=== PATIENT | male | born 1940 | race Caucasian/White ===

== ENCOUNTER 2024-07-06 13:54 | Inpatient (IN) | payer MEDICARE, BC ==
[~2024-07-06] VITALS: Ht 172.7 cm; Wt 71.7 kg
[2024-07-06 14:42] LABS: BASOPHILS # (AUTO) 0.1 K/uL (0.0-0.2); BASOPHILS % (AUTO) 0.2 % (0.0-2.0); EOSINOPHILS # (AUTO) 0.1 K/uL (0.0-0.7); EOSINOPHILS % (AUTO) 0.2 % (0.0-6.0); HEMATOCRIT 25 % (39-51); HEMOGLOBIN 8.2 g/dL (13.5-17.5); LYMPHOCYTES # (AUTO) 4.8 K/uL (0.8-4.8); LYMPHOCYTES % (AUTO) 12.4 % (20.0-44.0); MEAN CORPUSCULAR HEMOGLOBIN 32 PG (26.0-33.0); MEAN CORPUSCULAR HGB CONC 33 g/dl (31.0-36.0); MEAN CORPUSCULAR VOLUME 95 fL (80-96); MONOCYTES # (AUTO) 0.4 K/uL (0.1-1.30); MONOCYTES % (AUTO) 1.1 % (2.0-12.0); NEUTROPHILS # (AUTO) 33.1 K/uL (1.8-8.9); NEUTROPHILS % (AUTO) 86.1 % (43.0-81.0); PLATELET COUNT (AUTO) 90 K/uL (150-450); RED BLOOD CELL COUNT(AUTO) 2.57 MIL/uL (4.5-6.0); RED CELL DISTRIBUTION WIDTH 19.2 % (11.5-15.0)
[2024-07-06 15:05] LABS: CARBON DIOXIDE 28 mmol/L (21-32); CHLORIDE 94 mmol/L (98-107); CREATININE 1.2 mg/dL (0.6-1.3); GLUCOSE 299 mg/dL (74-106); NT-PRO BNP 2277 pg/mL (0-125); POTASSIUM 3.7 mmol/L (3.5-5.1); SODIUM SERUM 134 mmol/L (136-145); UREA NITROGEN, BLOOD 22 mg/dL (7-18)
[2024-07-06 15:24] LABS: WHITE BLOOD COUNT (AUTO) 38.5 K/uL (4.3-11.0)
[2024-07-06] MEDS ORDERED: FURO-145 PO (15:38)
[2024-07-06] MEDS ORDERED: LOSA100T31 PO (15:38)
[2024-07-06] MEDS ORDERED: CEVI30CA4 PO (15:38)
[2024-07-06] MEDS ORDERED: ROSU5TAB PO (15:38)
[2024-07-06] MEDS ORDERED: AMLO5TAB4 PO (15:38)
[2024-07-06] MEDS ORDERED: TEST200V3 IM (15:38)
[2024-07-06] MEDS ORDERED: ASPI-1420 PO (15:38)
[2024-07-06] MEDS ORDERED: METF-442 PO (15:38)
[2024-07-06] MEDS ORDERED: OMEP20CA15 PO (15:38)
[2024-07-06 16:17] LABS: BAND % (MANUAL) 2 % (0.0-5.0); BLASTS, MANUAL % 69 % (0-0); LYMPHOCYTES % (MANUAL) 19 % (16-48); MONOCYTES % (MANUAL) 8 % (0-11.0); NEUTROPHILS % (MANUAL) 2 (42-76)
[2024-07-06 16:18] LABS: ANISOCYTOSIS 1+; OVALOCYTES 1+; PLATELET ESTIMATE DECREASED
[2024-07-06 16:51] LABS: APPEARANCE,URINE Clear (CLEAR); BILIRUBIN,URINE Negative (NEGATIVE); BLOOD, URINE Small Ery/uL (NEGATIVE); COLOR,URINE YELLOW (YELLOW); KETONES,URINE 40 mg/dL (NEGATIVE); LEUKOCYTE ESTERASE ,URINE Negative (NEGATIVE); NITRITE, URINE Negative (NEGATIVE); PH,URINE 5.5 (5.0-8.0); PROTEIN,URINE 100 mg/dl (NEGATIVE); UGLUCOSE >=1000 mg/dL (NEGATIVE); UROBILINOGEN,URINE 0.2 EU/dL (0.2)
[2024-07-06 16:57] LABS: ADD URINE CULTURE NO; BACTERIA,URINE Rare /HPF (None Seen); CALCIUM OXALATE CRYSTALS,UR Few /HPF (None Seen); SQUAMOUS EPITHELIAL CELL,UR Rare /HPF (None Seen); WBC,URINE 0-2 /HPF (0-3)
[2024-07-06] MEDS ORDERED: hydrALAZINE HCL IV 20 MG VIAL IV PRN (17:00)
[2024-07-06] MEDS ORDERED: MORPHINE SULFATE INJ 2 MG/ML DISP.SYRIN IV PRN ×2 (17:00→17:30)
[2024-07-06] MEDS ORDERED: ONDANSETRON HCL/PF 4 MG/2 ML VIAL IVP PRN (17:00)
[2024-07-06] MEDS ORDERED: ALBUTEROL FS 2.5 MG/0.5 ML VIAL.NEB NEB PRN (17:00)
[2024-07-06 17:06] LABS: LACTIC ACID 3.1 mmol/L (0.4-2.0)
[2024-07-06] MEDS ORDERED: CEFEPIME 1 GM VIAL ONE (17:22)
[2024-07-06] MEDS ORDERED: FUROSEMIDE 20 MG/2 ML VIAL ONE (17:22)
[2024-07-06] MEDS: CEFEPIME 1 GM in IV D5W 50 ML IV ONE (17:30)
[2024-07-06] MEDS: FUROSEMIDE 20 MG/2 ML VIAL IV ONE (17:30)
[2024-07-06] MEDS ORDERED: INSULIN REGULAR, HUMAN 100 UNIT/ML 3 ML VIAL SQ PRN (17:30)
[2024-07-06] MEDS ORDERED: DEXTROSE 50%-WATER 50 ML DISP.SYRIN IV PRN (17:30)
[2024-07-06] MEDS: VANCOMYCIN 1 GM in IV D5W 250 ML IV ONE (18:00)
[2024-07-06] MEDS ORDERED: IPRATROPIUM/ALBUTEROL INHALER IH SCH ×2 (18:00→18:15)
[2024-07-06 20:00] VITALS: BP 128/59; TEMP 100.2; O2SAT 93
[2024-07-06] MEDS: ACETAMINOPHEN 325 MG TABLET PO PRN (20:16)
[2024-07-06 20:36] LABS: BILIRUBIN,DIRECT 0.2 mg/dL (0.0-0.2); BILIRUBIN,TOTAL 0.5 mg/dL (0.2-1.0)
[2024-07-06 20:40] LABS: LACTIC ACID REFLEX 1.7 mmol/L (0.4-1.9)
[2024-07-06] MEDS: DOCUSATE SODIUM LIQ 100 MG/10 ML UDC PO SCH (20:49)
[2024-07-06] MEDS ORDERED: HEPARIN SODIUM, PORCINE 5000 UNITS/1 ML VIAL SQ SCH ×2 (21:00)
[2024-07-06] MEDS: BLOOD SUGAR DIAGNOSTIC 1 EACH STRIP IN SCH (21:14)
[2024-07-06] MEDS: INSULIN REGULAR, HUMAN 100 UNIT/ML 3 ML VIAL SQ PRN (21:17)
[2024-07-06] MEDS: CEFEPIME 2 GM in IV D5W 100 ML IV SCH (21:54)
[2024-07-06] MEDS: ATORVASTATIN 10 MG TABLET PO SCH (21:55)
[2024-07-07] VITALS (11 sets, daily range): BP systolic 96–120; BP diastolic 52–80; TEMP 98.1–99.3; O2SAT 90–100
[2024-07-07 06:41] LABS: CALCIUM, SERUM 8.6 mg/dL (8.5-10.1); CARBON DIOXIDE 22 mmol/L (21-32); CHLORIDE 96 mmol/L (98-107); CREATININE 1.4 mg/dL (0.6-1.3); GLUCOSE 184 mg/dL (74-106); POTASSIUM 3.8 mmol/L (3.5-5.1); SODIUM SERUM 133 mmol/L (136-145); UREA NITROGEN, BLOOD 28 mg/dL (7-18)
[2024-07-07] MEDS: IPRATROPIUM NEB FS 0.5 MG/2.5 ML AMPUL.NEB NEB SCH (07:45)
[2024-07-07] MEDS: ALBUTEROL FS 2.5 MG/3 ML VIAL.NEB NEB SCH (07:45)
[2024-07-07] MEDS ORDERED: FUROSEMIDE 40 MG/4 ML VIAL IV SCH (08:00)
[2024-07-07] MEDS: FUROSEMIDE 40 MG/4 ML VIAL IV SCH ×2 (08:21→08:29)
[2024-07-07] MEDS: POLYETHYLENE GLYCOL 3350 17 GM POWD.PACK PO SCH (08:26)
[2024-07-07] MEDS: ASPIRIN EC 81 MG TABLET.DR PO SCH (08:26)
[2024-07-07] MEDS: PANTOPRAZOLE 40 MG TABLET.DR PO SCH (08:26)
[2024-07-07] MEDS: LOSARTAN POTASSIUM 50 MG TABLET PO SCH (08:36)
[2024-07-07] MEDS: AMLODIPINE BESYLATE 5 MG TABLET PO SCH (08:36)
[2024-07-07 08:53] LABS: BASOPHILS % (AUTO) 0.1 % (0.0-2.0); EOSINOPHILS # (AUTO) 0.4 K/uL (0.0-0.7); EOSINOPHILS % (AUTO) 0.7 % (0.0-6.0); HEMATOCRIT 24 % (39-51); HEMOGLOBIN 7.9 g/dL (13.5-17.5); LYMPHOCYTES # (AUTO) 5.3 K/uL (0.8-4.8); LYMPHOCYTES % (AUTO) 10.3 % (20.0-44.0); MEAN CORPUSCULAR HEMOGLOBIN 33 PG (26.0-33.0); MEAN CORPUSCULAR HGB CONC 33 g/dl (31.0-36.0); MEAN CORPUSCULAR VOLUME 97 fL (80-96); MONOCYTES # (AUTO) 0.8 K/uL (0.1-1.30); MONOCYTES % (AUTO) 1.6 % (2.0-12.0); NEUTROPHILS # (AUTO) 45.2 K/uL (1.8-8.9); NEUTROPHILS % (AUTO) 87.3 % (43.0-81.0); PLATELET COUNT (AUTO) 93 K/uL (150-450); RED BLOOD CELL COUNT(AUTO) 2.44 MIL/uL (4.5-6.0); RED CELL DISTRIBUTION WIDTH 19.7 % (11.5-15.0)
[2024-07-07] MEDS ORDERED: POLYETHYLENE GLYCOL 3350 17 GM POWD.PACK PO SCH (09:00)
[2024-07-07 09:40] LABS: WHITE BLOOD COUNT (AUTO) 51.7 K/uL (4.3-11.0)
[2024-07-07] MEDS: MAGNESIUM CITRATE 296 ML BOTTLE PO ONE ×2 (12:30→14:52)
[2024-07-07 12:33] LABS: ALBUMIN 2.4 g/dL (3.4-5.0); ALKALINE PHOSPHATASE 43 U/L (46-116); ASPARTATE AMINOTRANSFERASE 50 U/L (15-37); BILIRUBIN,DIRECT 0.3 mg/dL (0.0-0.2); BILIRUBIN,TOTAL 0.5 mg/dL (0.2-1.0); TOTAL PROTEIN, SERUM 6.4 g/dL (6.4-8.2)
[2024-07-07 13:10] LABS: ALANINE AMINOTRANSFERASE < 6 U/L (12-78)
[2024-07-07] MEDS: VANCOMYCIN HCL 1.25 GM in IV D5W 250 ML IV SCH (17:28)
[2024-07-07 20:16] LABS: BAND % (MANUAL) 3 % (0.0-5.0); BLASTS, MANUAL % 19 % (0-0); MONOCYTES % (MANUAL) 9 % (0-11.0); NEUTROPHILS % (MANUAL) 3 (42-76)
[2024-07-07 20:17] LABS: ANISOCYTOSIS 1+; HYPOCHROMASIA 1+
[2024-07-07 20:21] LABS: PLATELET ESTIMATE DECREASED
[2024-07-07 20:30] LABS: LYMPHOCYTES % (MANUAL) 66 % (16-48)
[2024-07-08] VITALS (12 sets, daily range): BP systolic 92–107; BP diastolic 46–54; TEMP 98.1–99.7; O2SAT 86–98
[2024-07-08 07:02] LABS: CALCIUM, SERUM 8.6 mg/dL (8.5-10.1); CARBON DIOXIDE 28 mmol/L (21-32); CHLORIDE 93 mmol/L (98-107); CREATININE 1.9 mg/dL (0.6-1.3); GLUCOSE 216 mg/dL (74-106); POTASSIUM 3.9 mmol/L (3.5-5.1); SODIUM SERUM 130 mmol/L (136-145); UREA NITROGEN, BLOOD 41 mg/dL (7-18)
[2024-07-08 07:21] LABS: HEMATOCRIT 23 % (39-51); HEMOGLOBIN 7.7 g/dL (13.5-17.5); MEAN CORPUSCULAR HEMOGLOBIN 32 PG (26.0-33.0); MEAN CORPUSCULAR HGB CONC 34 g/dl (31.0-36.0); MEAN CORPUSCULAR VOLUME 95 fL (80-96); PLATELET COUNT (AUTO) 84 K/uL (150-450); RED BLOOD CELL COUNT(AUTO) 2.43 MIL/uL (4.5-6.0)
[2024-07-08 07:31] LABS: WHITE BLOOD COUNT (AUTO) 48.6 K/uL (4.3-11.0)
[2024-07-08] MEDS ORDERED: CEVI30CA PO (10:18)
[2024-07-08] MEDS: BACLOFEN (10 MG) 10 MG TABLET PO SCH (10:19)
[2024-07-08 11:28] LABS: CARBON DIOXIDE 25 mmol/L (21-32); CHLORIDE 92 mmol/L (98-107); CREATININE 1.8 mg/dL (0.6-1.3); GLUCOSE 219 mg/dL (74-106); POTASSIUM 3.9 mmol/L (3.5-5.1); SODIUM SERUM 130 mmol/L (136-145); UREA NITROGEN, BLOOD 40 mg/dL (7-18)
[2024-07-08 11:35] LABS: ALANINE AMINOTRANSFERASE 33 U/L (12-78); ALBUMIN 2.1 g/dL (3.4-5.0); ALKALINE PHOSPHATASE 67 U/L (46-116); ASPARTATE AMINOTRANSFERASE 86 U/L (15-37); BILIRUBIN,TOTAL 0.7 mg/dL (0.2-1.0); CALCIUM, SERUM 8.8 mg/dL (8.5-10.1); TOTAL PROTEIN, SERUM 6.1 g/dL (6.4-8.2)
[2024-07-08 11:47] LABS: ANISOCYTOSIS 1+; PLATELET ESTIMATE DECREASED
[2024-07-08 11:48] LABS: BAND % (MANUAL) 1 % (0.0-5.0); BLASTS, MANUAL % 72 % (0-0); LYMPHOCYTES % (MANUAL) 20 % (16-48); MONOCYTES % (MANUAL) 4 % (0-11.0); NEUTROPHILS % (MANUAL) 3 (42-76)
[2024-07-08] MEDS: GUAIFENESIN LA 600 MG TABLET.SA PO SCH (14:16)
[2024-07-08] MEDS: CEVIMELINE HCL 30 MG PO SCH (16:47)
[2024-07-08] MEDS: VANCOMYCIN 1 GM in IV D5W 250ml IV SCH (17:33)
[2024-07-09] VITALS (69 sets, daily range): BP systolic 88–134; BP diastolic 29–106; TEMP 98.2–99; O2SAT 89–100
[2024-07-09 01:40] LABS: ABG BASE EXCESS 3.5 mmol/L (-2.0-2.0); ABG OXYGEN SATURATION 81.2 % (92.0-98.5); ABG PCO2 35.8 mmHg (35.0-45.0); ABG PH 7.495 (7.340-7.440); ABG PO2 46.6 mmHg (75.0-100.0); ABG TOTAL HEMOGLOBIN 7.3 G/dL (14.0-18.0); AaDO2 341.8 mmHg; COHb 0.4 % (0.5-1.5); O2Hb 80.9 % (94.0-97.0); SITE, ABG Left Radial; VENT MODE, BG 10L SIMPLE MASK
[2024-07-09] MEDS: PROPOFOL 100 ML IV PRN ×2 (07:47→10:00)
[2024-07-09 08:05] LABS: ALANINE AMINOTRANSFERASE 130 U/L (12-78); ALBUMIN 1.8 g/dL (3.4-5.0); ALKALINE PHOSPHATASE 194 U/L (46-116); ASPARTATE AMINOTRANSFERASE 323 U/L (15-37); CALCIUM, SERUM 8.6 mg/dL (8.5-10.1); CARBON DIOXIDE 24 mmol/L (21-32); CHLORIDE 87 mmol/L (98-107); CREATININE 1.9 mg/dL (0.6-1.3); GLUCOSE 342 mg/dL (74-106); POTASSIUM 4.1 mmol/L (3.5-5.1); SODIUM SERUM 122 mmol/L (136-145); UREA NITROGEN, BLOOD 50 mg/dL (7-18)
[2024-07-09 08:12] LABS: ABG BASE EXCESS -11.3 mmol/L (-2.0-2.0); ABG OXYGEN SATURATION 81.7 % (92.0-98.5); ABG PCO2 53.7 mmHg (35.0-45.0); ABG PH 7.123 (7.340-7.440); ABG PO2 65.2 mmHg (75.0-100.0); AaDO2 594.1 mmHg; COHb 0.3 % (0.5-1.5); MetHb 0.5 % (0.0-1.5); SITE, ABG Right Radial
[2024-07-09] MEDS: FUROSEMIDE 40 MG/4 ML VIAL IV ONE (08:29)
[2024-07-09] MEDS ORDERED: DEXTROSE 50%-WATER 50 ML DISP.SYRIN IV PRN (08:30)
[2024-07-09] MEDS: NOREPINEPHRINE 8 MG in IV D5W 242 ML IV PRN (08:56)
[2024-07-09] MEDS: Sodium Bicarbonate 150 MEQ in IV D5W 1,000 ML IV SCH (09:24)
[2024-07-09] MEDS: FUROSEMIDE 100 MG/10 ML VIAL IV SCH (09:51)
[2024-07-09] MEDS ORDERED: CALCIUM CHLORIDE 1,000 MG/10 ML DISP.SYRIN ONE (10:00)
[2024-07-09 10:08] LABS: LACTIC ACID 7.7 mmol/L (0.4-2.0)
[2024-07-09 11:10] LABS: MEAN CORPUSCULAR HEMOGLOBIN 32 PG (26.0-33.0); MEAN CORPUSCULAR HGB CONC 32 g/dl (31.0-36.0); MEAN CORPUSCULAR VOLUME 101 fL (80-96); PLATELET COUNT (AUTO) 92 K/uL (150-450)
[2024-07-09 11:13] LABS: HEMATOCRIT 20 % (39-51); HEMOGLOBIN 6.4 g/dL (13.5-17.5)
[2024-07-09 11:27] LABS: ABG BASE EXCESS -4.3 mmol/L (-2.0-2.0); ABG OXYGEN SATURATION 97.1 % (92.0-98.5); ABG PCO2 44.9 mmHg (35.0-45.0); ABG PH 7.303 (7.340-7.440); ABG PO2 117.5 mmHg (75.0-100.0); ABG TOTAL HEMOGLOBIN 6.6 G/dL (14.0-18.0); AaDO2 550.6 mmHg; COHb 0.3 % (0.5-1.5); MetHb 0.2 % (0.0-1.5); O2Hb 96.6 % (94.0-97.0); SITE, ABG Right Radial
[2024-07-09] MEDS ORDERED: IV Sodium Chloride 3% 500 ML 500 ML IV SCH (11:30)
[2024-07-09 11:51] LABS: ALANINE AMINOTRANSFERASE 133 U/L (12-78); ALBUMIN 1.8 g/dL (3.4-5.0); ALKALINE PHOSPHATASE 203 U/L (46-116); ASPARTATE AMINOTRANSFERASE 337 U/L (15-37); BILIRUBIN,TOTAL 0.9 mg/dL (0.2-1.0); CALCIUM, SERUM 8.6 mg/dL (8.5-10.1); CARBON DIOXIDE 18 mmol/L (21-32); CHLORIDE 87 mmol/L (98-107); CREATININE 2.2 mg/dL (0.6-1.3); POTASSIUM 5.2 mmol/L (3.5-5.1); SODIUM SERUM 123 mmol/L (136-145); TOTAL PROTEIN, SERUM 6.1 g/dL (6.4-8.2); UREA NITROGEN, BLOOD 54 mg/dL (7-18)
[2024-07-09] MEDS: BLOOD SUGAR DIAGNOSTIC 1 EACH STRIP IN SCH (11:53)
[2024-07-09] MEDS: INSULIN REGULAR, HUMAN 100 UNIT/ML 3 ML VIAL SQ PRN ×2 (11:55→17:04)
[2024-07-09 11:59] LABS: GLUCOSE 444 mg/dL (74-106)
[2024-07-09 12:34] LABS: BILIRUBIN,DIRECT 0.5 mg/dL (0.0-0.2)
[2024-07-09 13:05] LABS: ANISOCYTOSIS 1+; BLASTS, MANUAL % 94 % (0-0); LYMPHOCYTES % (MANUAL) 6 % (16-48); PLATELET ESTIMATE DECREASED
[2024-07-09 13:46] LABS: C-REACTIVE PROTEIN > 25.00 mg/dL (0.0-0.30)
[2024-07-09 14:08] LABS: URIC ACID 9.8 mg/dL (2.6-7.2)
[2024-07-09 15:18] LABS: CARBON DIOXIDE 25 mmol/L (21-32); CHLORIDE 85 mmol/L (98-107); CREATININE 2.3 mg/dL (0.6-1.3); UREA NITROGEN, BLOOD 58 mg/dL (7-18)
[2024-07-09 15:22] LABS: SODIUM SERUM 120 mmol/L (136-145)
[2024-07-09 15:23] LABS: GLUCOSE 424 mg/dL (74-106)
[2024-07-09 15:46] LABS: FIBRINOGEN ACTIVITY 384 Mg/dL (213-485); INR 1.54 (0.91-1.10); PARTIAL THROMBOPLASTIN TIME 40.6 SEC (24.3-34.3); PROTHROMBIN TIME 15.9 SECS (9.2-11.1)
[2024-07-09 16:07] LABS: D-DIMER > 35.20 mg/L(FEU (0.17-0.50)
[2024-07-09] MEDS: FLUCONAZOLE (100 MG) 100 MG TABLET PO SCH (19:00)
[2024-07-09] MEDS: ACYCLOVIR 800 MG TABLET PO SCH (19:00)
[2024-07-09 19:15] LABS: RHEUMATOID FACTOR SCREEN NEGATIVE (NEGATIVE)
[2024-07-09 21:56] LABS: HEMATOCRIT 22 % (39-51); HEMOGLOBIN 7.7 g/dL (13.5-17.5); MEAN CORPUSCULAR HEMOGLOBIN 33 PG (26.0-33.0); MEAN CORPUSCULAR HGB CONC 35 g/dl (31.0-36.0); MEAN CORPUSCULAR VOLUME 95 fL (80-96); RED BLOOD CELL COUNT(AUTO) 2.35 MIL/uL (4.5-6.0); RED CELL DISTRIBUTION WIDTH 18.2 % (11.5-15.0)
[2024-07-09 22:14] LABS: WHITE BLOOD COUNT (AUTO) 66.4 K/uL (4.3-11.0)
[2024-07-09 22:15] LABS: PLATELET COUNT (AUTO) 49 K/uL (150-450)
[2024-07-10] VITALS (96 sets, daily range): BP systolic 73–149; BP diastolic 49–67; TEMP 97.7–98.5; O2SAT 96–100
[2024-07-10 04:28] LABS: BLASTS, MANUAL % 98 % (0-0); LYMPHOCYTES % (MANUAL) 1 % (16-48); NEUTROPHILS % (MANUAL) 1 (42-76); PLATELET ESTIMATE DECREASED
[2024-07-10 04:29] LABS: ANISOCYTOSIS 1+; SMUDGE CELLS 3+
[2024-07-10 05:23] LABS: BASOPHILS # (AUTO) 0.1 K/uL (0.0-0.2); BASOPHILS % (AUTO) 0.1 % (0.0-2.0); EOSINOPHILS # (AUTO) 0.1 K/uL (0.0-0.7); EOSINOPHILS % (AUTO) 0.2 % (0.0-6.0); HEMATOCRIT 21 % (39-51); HEMOGLOBIN 7.4 g/dL (13.5-17.5); LYMPHOCYTES # (AUTO) 4.1 K/uL (0.8-4.8); LYMPHOCYTES % (AUTO) 6.5 % (20.0-44.0); MEAN CORPUSCULAR HEMOGLOBIN 33 PG (26.0-33.0); MEAN CORPUSCULAR HGB CONC 35 g/dl (31.0-36.0); MEAN CORPUSCULAR VOLUME 97 fL (80-96); MONOCYTES # (AUTO) 1.1 K/uL (0.1-1.30); MONOCYTES % (AUTO) 1.7 % (2.0-12.0); NEUTROPHILS # (AUTO) 57.1 K/uL (1.8-8.9); NEUTROPHILS % (AUTO) 91.5 % (43.0-81.0); RED BLOOD CELL COUNT(AUTO) 2.22 MIL/uL (4.5-6.0); RED CELL DISTRIBUTION WIDTH 18.5 % (11.5-15.0)
[2024-07-10 05:25] LABS: PLATELET COUNT (AUTO) 35 K/uL (150-450); WHITE BLOOD COUNT (AUTO) 62.5 K/uL (4.3-11.0)
[2024-07-10 05:28] LABS: FIBRINOGEN ACTIVITY 477 Mg/dL (213-485); INR 1.24 (0.91-1.10); PARTIAL THROMBOPLASTIN TIME 42.1 SEC (24.3-34.3)
[2024-07-10 05:29] LABS: D-DIMER > 35.20 mg/L(FEU (0.17-0.50)
[2024-07-10 05:59] LABS: ALANINE AMINOTRANSFERASE 97 U/L (12-78); ALBUMIN 1.7 g/dL (3.4-5.0); ALKALINE PHOSPHATASE 140 U/L (46-116); ASPARTATE AMINOTRANSFERASE 164 U/L (15-37); BILIRUBIN,TOTAL 0.8 mg/dL (0.2-1.0); CALCIUM, SERUM 8.2 mg/dL (8.5-10.1); CARBON DIOXIDE 27 mmol/L (21-32); CHLORIDE 87 mmol/L (98-107); CREATININE 3.1 mg/dL (0.6-1.3); GLUCOSE 176 mg/dL (74-106); MAGNESIUM 2.5 mg/dL (1.8-2.4); PHOSPHORUS 4.6 mg/dL (2.5-4.9); SODIUM SERUM 121 mmol/L (136-145); TOTAL PROTEIN, SERUM 5.7 g/dL (6.4-8.2); UREA NITROGEN, BLOOD 68 mg/dL (7-18)
[2024-07-10 06:15] LABS: TRIGLYCERIDES 274 mg/dL (30-150)
[2024-07-10 09:37] LABS: ANISOCYTOSIS 1+; BLASTS, MANUAL % 95 % (0-0); LYMPHOCYTES % (MANUAL) 3 % (16-48); MONOCYTES % (MANUAL) 1 % (0-11.0); NEUTROPHILS % (MANUAL) 1 (42-76); PLATELET ESTIMATE DECREASED
[2024-07-10] MEDS: PANTOPRAZOLE 40 MG VIAL IV SCH (10:19)
[2024-07-10] MEDS ORDERED: GLUCERNA 1.2 1,000 ML BOTTLE NG PRN (11:00)
[2024-07-10] MEDS ORDERED: DOSE PER PHARMACY (MD SPECIFY MEDICATION) 1 EA IV PRN (11:00)
[2024-07-10 11:45] LABS: MEAN CORPUSCULAR HEMOGLOBIN 34 PG (26.0-33.0); MEAN CORPUSCULAR HGB CONC 36 g/dl (31.0-36.0); MEAN CORPUSCULAR VOLUME 95 fL (80-96); RED BLOOD CELL COUNT(AUTO) 2.09 MIL/uL (4.5-6.0); RED CELL DISTRIBUTION WIDTH 18.4 % (11.5-15.0)
[2024-07-10 11:53] LABS: APPEARANCE,URINE CLOUDY (CLEAR); BILIRUBIN,URINE NEGATIVE (NEGATIVE); BLOOD, URINE 3+ Ery/uL (NEGATIVE); COLOR,URINE YELLOW (YELLOW); KETONES,URINE NEGATIVE (NEGATIVE); LEUKOCYTE ESTERASE ,URINE NEGATIVE (NEGATIVE); NITRITE, URINE NEGATIVE (NEGATIVE); PH,URINE 5.5 (5.0-8.0); PROTEIN,URINE 2+ mg/dl (NEGATIVE); UGLUCOSE TRACE mg/dL (NEGATIVE); UROBILINOGEN,URINE 0.2 EU/dL (0.2)
[2024-07-10 11:56] LABS: URINE TOTAL PROTEIN 203.9 mg/dL (0-11.9)
[2024-07-10 12:07] LABS: HEMATOCRIT 20 % (39-51); WHITE BLOOD COUNT (AUTO) 70.7 K/uL (4.3-11.0)
[2024-07-10 12:08] LABS: PLATELET COUNT (AUTO) 32 K/uL (150-450)
[2024-07-10 12:38] LABS: ADD URINE CULTURE NO; BACTERIA,URINE Few /HPF (None Seen); SQUAMOUS EPITHELIAL CELL,UR Few /HPF (None Seen); URINE AMORPHOUS URATE Many /HPF (None Seen); WBC,URINE 0-2 /HPF (0-3)
[2024-07-10 12:58] LABS: EOSINOPHIL,URINE None Seen
[2024-07-10] MEDS: MIDAZOLAM HCL 100 MG in IV NS 0.9% 80 ML IV PRN (14:05)
[2024-07-10] MEDS: FENTANYL CITRAT IV 2,500 MCG in IV NS 0.9% 200 ML IV PRN (14:07)
[2024-07-10 15:20] LABS: HEMOGLOBIN 7.2 g/dL (13.5-17.5); MEAN CORPUSCULAR HEMOGLOBIN 34 PG (26.0-33.0); MEAN CORPUSCULAR HGB CONC 36 g/dl (31.0-36.0); MEAN CORPUSCULAR VOLUME 96 fL (80-96); PLATELET COUNT (AUTO) 60 K/uL (150-450); RED CELL DISTRIBUTION WIDTH 18.8 % (11.5-15.0)
[2024-07-10 16:04] LABS: HEMATOCRIT 20 % (39-51)
[2024-07-10 16:20] LABS: WHITE BLOOD COUNT (AUTO) 68.3 K/uL (4.3-11.0)
[2024-07-10] MEDS ORDERED: NS 0.9% IV ONE (18:00)
[2024-07-10] MEDS ORDERED: RASBURICASE IV ONE (18:00)
[2024-07-10 18:05] LABS: NEUTROPHILS % (MANUAL) 1 (42-76)
[2024-07-10 18:06] LABS: ANISOCYTOSIS 1+; BLASTS, MANUAL % 96 % (0-0); LYMPHOCYTES % (MANUAL) 3 % (16-48); PLATELET ESTIMATE DECREASED
[2024-07-10] MEDS: VANCOMYCIN 750 MG in IV D5W 250 ML IV SCH (18:29)
[2024-07-10] MEDS: CEFEPIME 1 GM in IV D5W 50 ML IV SCH (20:50)
[2024-07-10] MEDS: NS 0.9% IV ONE (20:50)
[2024-07-10] MEDS: RASBURICASE IV ONE (20:50)
[2024-07-10] MEDS: MEROPENEM 500 MG in IV NS 0.9% 50 ML IV SCH (21:41)
[2024-07-10 23:45] LABS: HEMATOCRIT 23 % (39-51); MEAN CORPUSCULAR HEMOGLOBIN 31 PG (26.0-33.0); MEAN CORPUSCULAR HGB CONC 35 g/dl (31.0-36.0); MEAN CORPUSCULAR VOLUME 91 fL (80-96); RED BLOOD CELL COUNT(AUTO) 2.56 MIL/uL (4.5-6.0); RED CELL DISTRIBUTION WIDTH 20.6 % (11.5-15.0)
[2024-07-11] VITALS (66 sets, daily range): BP systolic 75–120; BP diastolic 45–59; TEMP 98.5–99; O2SAT 92–100
[2024-07-11 01:01] LABS: PLATELET COUNT (AUTO) 30 K/uL (150-450)
[2024-07-11 01:03] LABS: WHITE BLOOD COUNT (AUTO) 60.1 K/uL (4.3-11.0)
[2024-07-11 02:06] LABS: HEPATITIS B SURFACE AB Non Reactive (.)
[2024-07-11 05:08] LABS: FOLIC ACID 6.4 ng/mL (>3.0)
[2024-07-11 05:10] LABS: HEMATOCRIT 24 % (39-51); HEMOGLOBIN 8.1 g/dL (13.5-17.5); MEAN CORPUSCULAR HEMOGLOBIN 31 PG (26.0-33.0); MEAN CORPUSCULAR HGB CONC 34 g/dl (31.0-36.0); MEAN CORPUSCULAR VOLUME 91 fL (80-96); RED BLOOD CELL COUNT(AUTO) 2.58 MIL/uL (4.5-6.0); RED CELL DISTRIBUTION WIDTH 20.5 % (11.5-15.0)
[2024-07-11 05:11] LABS: CARBON DIOXIDE 26 mmol/L (21-32); CHLORIDE 88 mmol/L (98-107); CREATININE 4.8 mg/dL (0.6-1.3); GLUCOSE 148 mg/dL (74-106); SODIUM SERUM 122 mmol/L (136-145)
[2024-07-11 05:16] LABS: ALANINE AMINOTRANSFERASE 65 U/L (12-78); ALBUMIN 1.6 g/dL (3.4-5.0); ALKALINE PHOSPHATASE 119 U/L (46-116); ASPARTATE AMINOTRANSFERASE 89 U/L (15-37); BILIRUBIN,TOTAL 0.7 mg/dL (0.2-1.0); TOTAL PROTEIN, SERUM 5.5 g/dL (6.4-8.2); UREA NITROGEN, BLOOD 90 mg/dL (7-18)
[2024-07-11 05:27] LABS: FIBRINOGEN ACTIVITY 621 Mg/dL (213-485); PARTIAL THROMBOPLASTIN TIME 41.3 SEC (24.3-34.3); PROTHROMBIN TIME 12.6 SECS (9.2-11.1)
[2024-07-11 05:31] LABS: URIC ACID 7.6 mg/dL (2.6-7.2)
[2024-07-11 05:35] LABS: D-DIMER > 35.20 mg/L(FEU (0.17-0.50)
[2024-07-11 06:14] LABS: ANISOCYTOSIS 1+
[2024-07-11 06:16] LABS: PLATELET COUNT (AUTO) 50 K/uL (150-450); WHITE BLOOD COUNT (AUTO) 67.3 K/uL (4.3-11.0)
[2024-07-11 06:17] LABS: BLASTS, MANUAL % 85 % (0-0); LYMPHOCYTES % (MANUAL) 10 % (16-48); NEUTROPHILS % (MANUAL) 5 (42-76)
[2024-07-11 06:25] LABS: BASOPHILS % (MANUAL) 0 % (0.0-2.0); EOSINOPHILS % (MANUAL) 1 % (0-4); LYMPHOCYTES % (MANUAL) 13 % (16-48)
[2024-07-11 06:26] LABS: MONOCYTES % (MANUAL) 2 % (0-11.0)
[2024-07-11 06:27] LABS: HYPOCHROMASIA 2+
[2024-07-11 06:28] LABS: ANISOCYTOSIS 1+
[2024-07-11 06:33] LABS: BAND % (MANUAL) 2 % (0.0-5.0); BLASTS, MANUAL % 82 % (0-0)
[2024-07-11 08:08] LABS: *ANA ANTI-CENTROMERE B AB <0.2 AI (0.0-0.9); *ANA ANTI-DNA(DS) AB, QN <1 IU/mL (0-9); *ANA ANTI-JO-1 <0.2 AI (0.0-0.9); *ANA ANTICHROMATIN ANTIBODY <0.2 AI (0.0-0.9); *ANA RNP ANTIBODIES <0.2 AI (0.0-0.9); *ANA SJOGREN'S ANTI-SS-A <0.2 AI (0.0-0.9); *ANA SJOGREN'S ANTI-SS-B <0.2 AI (0.0-0.9); *ANAANTI-SCLERODERMA-70 AB <0.2 AI (0.0-0.9); *ANASMITH AB <0.2 AI (0.0-0.9); *SPE A/G RATIO 0.7 (0.7-1.7); *SPE ALBUMIN 2.2 g/dL (2.9-4.4); *SPE ALPHA-1-GLOBULIN 0.5 g/dL (0.0-0.4); *SPE BETA GLOBULIN 0.9 g/dL (0.7-1.3); *SPE GLOBULIN, TOTAL 3.1 g/dL (2.2-3.9); *SPE M-SPIKE Not Observed g/dL (Not Observed); *SPE PROTEIN TOTAL 5.3 g/dL (6.0-8.5); *SPEGAMMA GLOBULIN 0.6 g/dL (0.4-1.8); IMMUNOGLOBULIN A, SERUM 194 mg/dL (61-437); IMMUNOGLOBULIN G, SERUM 684 mg/dL (603-1613); IMMUNOGLOBULIN M, SERUM 75 mg/dL (15-143)
[2024-07-11] MEDS: ALLOPURINOL 100 MG TABLET PO SCH (10:32)
[2024-07-11] MEDS: KEY,NONCONTROL,TO KEEP IN PYXI 1 EA MC ONE (14:21)
[2024-07-11] MEDS ORDERED: KEY,NONCONTROL,TO KEEP IN PYXI 1 EA MC ONE (16:12)
[2024-07-11] MEDS ORDERED: ETOMIDATE 2 MG/ML VIAL IV ONE (16:18)
[2024-07-12] MEDS ORDERED: VANCOMYCIN 1 GM in IV D5W 250 ML IV SCH (06:00)
[2024-07-12] MEDS ORDERED: PANTOPRAZOLE 40 MG/PACK PACK NG SCH (10:00)
== END 2024-07-11 18:56 | disposition short-term general hospital (02) | DRG 871 ==
LOC: ER 13:59 → TELE1 20:02 → ICU 07-09 07:23
PROVIDERS: ADMIT Internal Medicine; ATTEND Internal Medicine
PROC: 5A1945Z Respiratory Ventilation, 24-96 Consecutive Hours (ICD-10-PCS; principal; 2024-07-09)
PROC: 0BH18EZ Insertion of Endotracheal Airway into Trachea, Via Natural or Artificial Opening Endoscopic (ICD-10-PCS; 2024-07-09)
PROC: 30233N1 Transfusion of Nonautologous Red Blood Cells into Peripheral Vein, Percutaneous Approach (ICD-10-PCS; 2024-07-09)
PROC: 0JH63WZ Insertion of Totally Implantable Vascular Access Device into Chest Subcutaneous Tissue and Fascia, Percutaneous Approach (ICD-10-PCS; 2024-07-09)
PROC: 05HM33Z Insertion of Infusion Device into Right Internal Jugular Vein, Percutaneous Approach (ICD-10-PCS; 2024-07-09)
PROC: B543ZZA Ultrasonography of Right Jugular Veins, Guidance (ICD-10-PCS; 2024-07-09)
DX: A41.9 Sepsis, unspecified organism (principal); E88.3 Tumor lysis syndrome; G93.41 Metabolic encephalopathy; I21.A1 Myocardial infarction type 2; J96.21 Acute and chronic respiratory failure with hypoxia; J96.22 Acute and chronic respiratory failure with hypercapnia; J69.0 Pneumonitis due to inhalation of food and vomit; I46.9 Cardiac arrest, cause unspecified; J90 Pleural effusion, not elsewhere classified; C92.00 Acute myeloblastic leukemia, not having achieved remission; E87.1 Hypo-osmolality and hyponatremia; N39.0 Urinary tract infection, site not specified; G93.1 Anoxic brain damage, not elsewhere classified; D69.6 Thrombocytopenia, unspecified; I11.0 Hypertensive heart disease with heart failure; I50.9 Heart failure, unspecified; Z20.822 Contact with and (suspected) exposure to COVID-19; Z79.82 Long term (current) use of aspirin; Z79.84 Long term (current) use of oral hypoglycemic drugs; Z79.899 Other long term (current) drug therapy; E78.5 Hyperlipidemia, unspecified; R65.20 Severe sepsis without septic shock; D53.9 Nutritional anemia, unspecified; I35.0 Nonrheumatic aortic (valve) stenosis; R13.10 Dysphagia, unspecified; K11.7 Disturbances of salivary secretion; I25.10 Atherosclerotic heart disease of native coronary artery without angina pectoris; Y95 Nosocomial condition; Z85.22 Personal history of malignant neoplasm of nasal cavities, middle ear, and accessory sinuses; Z92.21 Personal history of antineoplastic chemotherapy; Z98.890 Other specified postprocedural states; Z92.3 Personal history of irradiation; E11.9 Type 2 diabetes mellitus without complications
CPT/HCPCS: 31720; 36415; 36600; 71045-TC; 71250-TC; 74018; 76700-TC; 80048-TC; 80053-TC; 80076-TC; 80202-TC; 81001; 82247-TC; 82248-TC; 82378; 82570-TC; 82607-TC; 82728-TC; 82784; 82803-TC; 82962-TC; 83540-TC; 83605-TC; 83615-TC; 83735-TC; 83880; 83935-TC; 84100-TC; 84155; 84165; 84300-TC; 84443-TC; 84478-TC; 84484-TC; 84550-TC; 85025-TC; 85396; 86140-TC; 86225; 86235; 86334; 86431-TC; 86706; 86803; 86850-TC; 87040-TC; 87081-TC; 87086-TC; 87340; 92950-TC; 93307-TC; 94002-TC; 94003-TC; 94760-TC; 94762-TC; 94799-TC; A4217; A4223; A6253; G0378; J0171; J0692; J1815; J1940; J2185; J2250; J2470; J3010; J3370; J3371; J3490; J7030; J7040; J7050; J7060; J7070; P9016